=== PATIENT | male | born 1965 | race Caucasian/White ===

== ENCOUNTER 2016-12-30 23:49 | Emergency (ER) | payer OTHER ==
[~2016-12-30 23:49] MED LIST: ASPI-650 PO; MECL-85 PO; SIMV20TA3 PO; TRAM50TA2 PO
[2016-12-31] MEDS ORDERED: morphine SULFATE 10 MG/ML, 1ML ONE (00:50)
[2016-12-31 00:53] LABS: HEMATOCRIT 45.9 % (39.2-51.8); HEMOGLOBIN 15.4 g/dL (13.7-18.0); WHITE BLOOD COUNT 7.9 x10^3/uL (3.4-10)
[2016-12-31] MEDS ORDERED: morphine SULFATE 10 MG/ML, 1ML IVPush PRN (01:00)
[2016-12-31] MEDS ORDERED: ONDANSETRON 2MG/ML, 2ML IVPush ONE (01:00)
[2016-12-31 01:03] LABS: BLOOD UREA NITROGEN 12 mg/dL (7-18)
[2016-12-31 01:11] LABS: ASPARTATE AMINO TRANSFERASE 31 U/L (15-37); IS PT STATUS REG ER OR PRE ER? YES
[2016-12-31] MEDS ORDERED: FAMOTIDINE 20 MG/2 ML ONE (01:14)
[2016-12-31] MEDS ORDERED: MAALOX/HYOSCYAMINE/LIDOCAINE 45 ML BTL ONE (01:14)
[2016-12-31] MEDS ORDERED: MAALOX/HYOSCYAMINE/LIDOCAINE 45 ML BTL PO ONE (01:30)
[2016-12-31] MEDS ORDERED: FAMOTIDINE 20 MG/2 ML IVPush ONE (01:30)
[2016-12-31 03:03] VITALS: BP 117/69
== END 2016-12-31 03:13 | disposition home or self-care (01) ==
LOC: ED 12-31 03:07
DX: K29.00 Acute gastritis without bleeding (principal); E78.5 Hyperlipidemia, unspecified; I25.2 Old myocardial infarction; Z79.82 Long term (current) use of aspirin; Z90.49 Acquired absence of other specified parts of digestive tract
CPT/HCPCS: 36415; 71010; 76700; 80053; 83690; 84484; 85025; 93005; 96374; 96375; 99285; J2270; S0028

== ENCOUNTER 2017-08-08 09:25 | Inpatient (IN) | payer OTHER ==
[~2017-08-08] VITALS: Ht 175.3 cm; Wt 121.6 kg
[2017-08-08] MEDS ORDERED: MORPHINE SULFATE 4 MG/ML, 1ML ONE ×2 (10:06→12:53)
[2017-08-08] MEDS: MORPHINE SULFATE 4 MG/ML, 1ML IVPush PRN ×2 (10:11→12:55)
[2017-08-08 10:30] LABS: BASOPHILS # (AUTO) 0.01 x10^3/uL (0-0.1); BASOPHILS % (AUTO) 0 % (0-1); EOSINOPHILS # (AUTO) 0.09 x10^3/uL (0-0.4); EOSINOPHILS % (AUTO) 2 % (1-7); LYMPHOCYTES # (AUTO) 1.09 x10^3/uL (1-3.4); LYMPHOCYTES % (AUTO) 20 % (22-44); MD NO; MEAN CORPUSCULAR HEMOGLOBIN 28.7 pg (27.5-34.5); MEAN CORPUSCULAR HGB CONC 33.6 g/dL (33.2-36.2); MEAN CORPUSCULAR VOLUME 85.4 fL (81-97); MEAN PLATELET VOLUME 8.1 fL (7.4-10.4); MONOCYTES # (AUTO) 0.35 x10^3/uL (0.2-0.8); MONOCYTES % (AUTO) 7 % (2-9); NEUTROPHILS # (AUTO) 3.86 x10^3/uL (1.8-6.8); NEUTROPHILS % (AUTO) 72 % (42-75); PLATELET COUNT 222 x10^3/uL (130-400); RED BLOOD COUNT 5.12 x10^6/uL (4.38-5.82); RED CELL DISTRIBUTION WIDTH 13.8 % (9.4-14.8)
[2017-08-08] MEDS ORDERED: SODIUM CHLORIDE FLUSH 10ML SYR IVF ONE (10:30)
[2017-08-08 10:35] LABS: HCT (SEDRATE) 43.8 % (39.2-51.8)
[2017-08-08 10:38] LABS: ALBUMIN 3.5 g/dL (3.4-5.0); ANION GAP 8 mmol/L (5-15); CALCIUM 8.5 mg/dL (8.5-10.1); CHLORIDE 109 mmol/L (98-107)
[2017-08-08] MEDS ORDERED: GADOBUTROL 15 MMOL/15 ML PFS ONE (11:28)
[2017-08-08 13:51] LABS: INTERNATIONAL NORMALIZED RATIO 0.98 (0.93-1.1); PROTHROMBIN TIME 10.1 Seconds (9.6-11.5)
[2017-08-08 14:26] LABS: BASOPHILS # (AUTO) 0.01 x10^3/uL (0-0.1); BASOPHILS % (AUTO) 0 % (0-1); EOSINOPHILS # (AUTO) 0.08 x10^3/uL (0-0.4); EOSINOPHILS % (AUTO) 2 % (1-7); LYMPHOCYTES # (AUTO) 1.23 x10^3/uL (1-3.4); LYMPHOCYTES % (AUTO) 23 % (22-44); MD NO; MEAN CORPUSCULAR HEMOGLOBIN 28.9 pg (27.5-34.5); MEAN CORPUSCULAR HGB CONC 33.4 g/dL (33.2-36.2); MEAN CORPUSCULAR VOLUME 86.7 fL (81-97); MONOCYTES # (AUTO) 0.34 x10^3/uL (0.2-0.8); MONOCYTES % (AUTO) 6 % (2-9); NEUTROPHILS # (AUTO) 3.75 x10^3/uL (1.8-6.8); NEUTROPHILS % (AUTO) 69 % (42-75); PLATELET COUNT 216 x10^3/uL (130-400); RED CELL DISTRIBUTION WIDTH 13.7 % (9.4-14.8)
[2017-08-08] MEDS: DEXAMETHASONE 4 MG/ML, 1ML IVPush SCH ×2 (14:29→21:36)
[2017-08-08] MEDS ORDERED: ONDANSETRON ODT 4 MG PO PRN (14:30)
[2017-08-08] MEDS ORDERED: POLYETHYLENE GLYCOL 17 GM PACKET PO PRN (14:30)
[2017-08-08] MEDS ORDERED: GUAIFENESIN/DM 200-20MG, 10ML UDC PO PRN ×2 (14:30→14:57)
[2017-08-08] MEDS ORDERED: ONDANSETRON 2MG/ML, 2ML IVPush PRN (14:30)
[2017-08-08] MEDS ORDERED: LABETALOL 5MG/ML, 20ML IVPush PRN (14:30)
[2017-08-08] MEDS ORDERED: DEXAMETHASONE 4 MG/ML, 1ML IVPush ONE (14:30)
[2017-08-08] MEDS ORDERED: DEXAMETHASONE 4 MG/ML, 1ML ONE (14:30)
[2017-08-08] MEDS ORDERED: KETOROLAC 30 MG/1 ML IVPush PRN (14:30)
[2017-08-08] MEDS ORDERED: METHOCARBAMOL 500 MG TABLET PO PRN (14:30)
[2017-08-08 14:48] LABS: CHOL/HDL RATIO 7.5; FREE T4 (FREE THYROXINE) 1.27 ng/dL (0.76-1.46); LDL/HDL RATIO 5.6 (0.5-3.0); THYROID STIMULATING HORMONE 2.99 mIU/L (0.358-3.740)
[2017-08-08 14:58] VITALS: BP 129/87
[2017-08-08 15:38] LABS: HEMOGLOBIN A1C 6.2 % (4.2-6.3)
[2017-08-08] MEDS: HYDROcodone/APAP 5/325 TABLET PO PRN ×2 (18:08→23:47)
[2017-08-08 19:08] VITALS: BP 121/77
[2017-08-09 02:28] VITALS: BP 115/73
[2017-08-09] MEDS: DEXAMETHASONE 4 MG/ML, 1ML IVPush SCH ×4 (03:30→21:03)
[2017-08-09 04:41] LABS: CHLORIDE 107 mmol/L (98-107)
[2017-08-09 04:59] LABS: ALANINE AMINOTRANSFERASE 59 U/L (12-78); ALBUMIN 3.3 g/dL (3.4-5.0); ALKALINE PHOSPHATASE 100 U/L (45-117); ANION GAP 8 mmol/L (5-15); BILIRUBIN,TOTAL 0.7 mg/dL (0.2-1.0); CALCIUM 8.9 mg/dL (8.5-10.1); CREATININE 1.01 mg/dL (0.7-1.3); THYROID STIMULATING HORMONE 0.543 mIU/L (0.358-3.740); TOTAL PROTEIN 6.6 g/dL (6.4-8.2)
[2017-08-09 06:52] VITALS: BP 127/72
[2017-08-09] MEDS ORDERED: SODIUM PHOSPHATE 4 MEQ/ML IV SCH (07:00)
[2017-08-09] MEDS ORDERED: SODIUM PHOSPHATE 30 MMOL in SODIUM CHLORIDE 0.9% 500 ML IV ONE (07:30)
[2017-08-09] MEDS: HYDROcodone/APAP 5/325 TABLET PO PRN (07:57)
[2017-08-09] MEDS: SENNA/DOCUSATE TABLET PO SCH ×2 (09:00→15:39)
[2017-08-09] MEDS ORDERED: GADOBUTROL 15 MMOL/15 ML PFS ONE (10:35)
[2017-08-09 12:44] VITALS: BP 125/77
[2017-08-09 19:30] VITALS: BP 115/67
[2017-08-10 01:50] VITALS: BP 109/68
[2017-08-10] MEDS: DEXAMETHASONE 4 MG/ML, 1ML IVPush SCH ×2 (03:01→09:07)
[2017-08-10] MEDS: HYDROcodone/APAP 5/325 TABLET PO PRN (06:07)
[2017-08-10 07:04] VITALS: BP 116/70
[2017-08-10] MEDS ORDERED: METH500T7 PO (08:43)
[2017-08-10] MEDS ORDERED: DEXA4TAB66 PO (08:43)
== END 2017-08-10 10:08 | disposition home or self-care (01) | DRG 552 ==
LOC: ED 10:43 → EDIP 14:04 → 3NW 14:55 → DCLOUNGE 08-10 10:00
PROVIDERS: ADMIT Hospitalist; ATTEND Hospitalist
DX: M51.24 Other intervertebral disc displacement, thoracic region (principal); E66.01 Morbid (severe) obesity due to excess calories; E78.5 Hyperlipidemia, unspecified; G89.29 Other chronic pain; I25.10 Atherosclerotic heart disease of native coronary artery without angina pectoris; M47.812 Spondylosis without myelopathy or radiculopathy, cervical region; M47.814 Spondylosis without myelopathy or radiculopathy, thoracic region; M48.02 Spinal stenosis, cervical region; M48.04 Spinal stenosis, thoracic region; Z80.1 Family history of malignant neoplasm of trachea, bronchus and lung; Z82.49 Family history of ischemic heart disease and other diseases of the circulatory system; Z85.820 Personal history of malignant melanoma of skin; Z83.3 Family history of diabetes mellitus; Z68.39 Body mass index [BMI] 39.0-39.9, adult
CPT/HCPCS: 36415; 72157; 72158; 80048; 80053; 80061; 82040; 83036; 83690; 83735; 84100; 84439; 84443; 85025; 85610; 85651; 93306; A9585; J1100; J1885; J2405; J7040

== ENCOUNTER 2017-08-12 16:53 | Emergency (ER) | payer OTHER ==
[~2017-08-12] VITALS: Ht 175.3 cm; Wt 115.0 kg
[~2017-08-12 16:53] MED LIST changes: +DEXA4TAB66 PO; +METH500T7 PO
[2017-08-12 17:36] LABS: MEAN CORPUSCULAR HEMOGLOBIN 28.9 pg (27.5-34.5); MEAN CORPUSCULAR HGB CONC 33.5 g/dL (33.2-36.2); MEAN CORPUSCULAR VOLUME 86.3 fL (81-97); MEAN PLATELET VOLUME 9.7 fL (7.4-10.4); PLATELET COUNT 343 x10^3/uL (130-400); RED BLOOD COUNT 5.67 x10^6/uL (4.38-5.82); RED CELL DISTRIBUTION WIDTH 14.1 % (9.4-14.8)
[2017-08-12] MEDS ORDERED: DIPHENHYDRAMINE 50 MG/ML, 1ML ONE (17:38)
[2017-08-12] MEDS ORDERED: MAALOX/HYOSCYAMINE/LIDOCAINE 45 ML BTL ONE (17:38)
[2017-08-12] MEDS ORDERED: METOCLOPRAMIDE 5 MG/ML, 2ML ONE (17:38)
[2017-08-12] MEDS ORDERED: FAMOTIDINE 20 MG/2 ML ONE (17:39)
[2017-08-12 17:42] LABS: INTERNATIONAL NORMALIZED RATIO 1.02 (0.93-1.1); PROTHROMBIN TIME 10.6 Seconds (9.6-11.5)
[2017-08-12 17:45] LABS: ALANINE AMINOTRANSFERASE 55 U/L (12-78); ALBUMIN 3.6 g/dL (3.4-5.0); ANION GAP 11 mmol/L (5-15); CALCIUM 8.7 mg/dL (8.5-10.1); CHLORIDE 104 mmol/L (98-107)
[2017-08-12 17:48] LABS: ALKALINE PHOSPHATASE 99 U/L (45-117); BILIRUBIN,TOTAL 0.7 mg/dL (0.2-1.0); TOTAL PROTEIN 6.8 g/dL (6.4-8.2)
[2017-08-12 17:50] LABS: MD YES
[2017-08-12 17:52] LABS: BAND#(MANUAL) 0.18 x10^3/uL; BANDS%(MANUAL) 1 % (0-7); LYMPH#(MANUAL) 1.76 x10^3/uL (1-3.4); LYMPHS% (MANUAL) 10 % (22-44); METAMYELOCYTES# (MANUAL) 0.18 x10^3/uL (0-0); METAMYELOCYTES% (MANUAL) 1 % (0-1); MONOS#(MANUAL) 1.06 x10^3/uL (0.3-2.7); MONOS% (MANUAL) 6 % (2-9); MYELOCYTES# (MANUAL) 0.18 x10^3/uL (0-0); MYELOCYTES% (MANUAL) 1 % (0-0); SEG#(MANUAL) 14.26 x10^3/uL (1.8-6.8); SEGS% (MANUAL) 81 % (42-75)
[2017-08-12 17:53] LABS: <PLATELET ESTIMATE> ADEQUATE; <PLT MORPHOLOGY> NORMAL PLT MORPH; <RBC MORPHOLOGY> NORMAL; TROPONIN I < 0.015 ng/mL (0.000-0.045)
[2017-08-12] MEDS ORDERED: MAALOX/HYOSCYAMINE/LIDOCAINE 45 ML BTL PO ONE (18:00)
[2017-08-12] MEDS ORDERED: FAMOTIDINE 20 MG/2 ML IVP ONE (18:00)
[2017-08-12] MEDS ORDERED: DIPHENHYDRAMINE 50 MG/ML, 1ML IVPush ONE (18:00)
[2017-08-12] MEDS ORDERED: SODIUM CHLORIDE FLUSH 10ML SYR IVF ONE (18:00)
[2017-08-12] MEDS ORDERED: METOCLOPRAMIDE 5 MG/ML, 2ML IVPush ONE (18:00)
[2017-08-12] MEDS ORDERED: NAPR-685 PO (18:04)
[2017-08-12 18:10] VITALS: BP 123/90
[2017-08-12] MEDS ORDERED: HYDR-3240 PO (18:16)
== END 2017-08-12 18:57 | disposition home or self-care (01) ==
LOC: ED 18:26
DX: K21.9 Gastro-esophageal reflux disease without esophagitis (principal); E78.5 Hyperlipidemia, unspecified
CPT/HCPCS: 36415; 74022; 76700; 80053; 83690; 84484; 85025; 85610; 85730; 86677; 93005; 96374; 96375; 99285; J1200; J2765; S0028